=== PATIENT | female | born 1945 | race Caucasian/White ===

== ENCOUNTER 2025-07-11 07:15 | Inpatient (IN) | payer OTHER ==
[~2025-07-11] VITALS: Ht 157.5 cm; Wt 90.7 kg
[~2025-07-11 07:15] MED LIST: BACTRIM DS TABL1 TAB PO; DICY20TA PO; OXYC1TAB9 PO; PEPCID20 MG PO; POLY119PG PO; PROTONIX40 MG PO; TOPROL XL25 M1 PO
[2025-07-11] MEDS ORDERED: ATORVASTATIN CA10 MG PO (08:23)
[2025-07-11] MEDS ORDERED: COZAAR50 MG PO (08:23)
[2025-07-11] MEDS ORDERED: ELIQUIS5 MG PO (08:23)
[2025-07-11] MEDS ORDERED: PREVACID30 M1 PO (08:24)
[2025-07-11] MEDS ORDERED: JANUMET 50-1,01 EACH (08:24)
[2025-07-11] MEDS ORDERED: CARAFATE1 GM PO (08:25)
[2025-07-11] MEDS ORDERED: ACTOS45 MG PO (08:25)
[2025-07-11] MEDS ORDERED: TOPROL XL100 M1 PO (08:25)
[2025-07-11 08:30] VITALS: BP 152/78
[2025-07-11 08:58] LABS: BASO % 0.4 % (0.1-1.2); EOS # 0.14 (0.04-0.54); EOS % 2.0 % (0.7-7.0); LYMPH # 1.14 (1.18-3.74); LYMPH % 16.5 % (19.3-53.1); MEAN PLATELET VOLUME 9.70 fl (9.4-12.4); MONO # 0.76 (0.24-0.82); MONO % 11.0 % (4.7-12.5); NEUT # 4.77 (1.56-6.13); NEUT % 69.4 % (34.0-71.1); RED CELL DISTRIBUTION WIDTH 15.7 % (11.6-14.4)
[2025-07-11 09:03] LABS: URINE APPEARANCE Clear; URINE BILIRRUBIN Negative (NEGATIVE); URINE BLOOD Negative; URINE COLOR Yellow; URINE GLUCOSE Negative (NEGATIVE); URINE KETONE Negative (NEGATIVE); URINE LEUKOCYTE Small; URINE NITRATE Negative; URINE PROTEIN Negative (NEGATIVE); URINE UROBILINOGEN 1.0 E.U./dl
[2025-07-11 09:05] LABS: URINE BACTERIA 76.7 uL (0.0-1933); URINE EPITHELIAL CELLS 16.1 uL (0.0-38.8); URINE RBC 3.6 uL (0.0-20.8); URINE WBC 43.7 uL (0.0-23.2)
[2025-07-11 09:09] LABS: URINE CAST 0.14 uL (0.0-1.40)
[2025-07-11 09:15] LABS: COVID-19 AG NEGATIVE (NEGATIVE)
[2025-07-11 09:34] LABS: ALT/SGPT 19.0 U/L (12-78); AST/SGOT 12.0 U/L (15-37); BILIRUBIN TOTAL 1.45 mg/dL (0.3-1.2); BUN CREA RATIO 26.0 (7.0-25.0); CHOL HDL RATIO 2.2 (0-5.0); CREATININE SERUM 0.69 mg/dL (0.55-1.02); GFR 82.5; GLOBULINA 3.4 G/DL (2.4-3.5); GLUCOSE FASTING 128.0 mg/dL (65-100); HDL 58.0 mg/dl (40-60); LDL 53.0 mg/dl (0-130); OSMOLALITY SERUM 292.0 MOSM/KG (275-295); VLDL 19.0 (0-39)
[2025-07-11 09:48] LABS: INR 1.05
[2025-07-17 17:20] LABS: RH POSITIVE
[2025-07-18] MEDS ORDERED: LIDOCAINE HCL 1%/EPINEPHRINE 20ML VIAL IJ ONE (12:00)
[2025-07-18] MEDS ORDERED: BUPIVACAINE HCL/PF 0.25% 30ML VIAL InF ONE (12:00)
[2025-07-18] MEDS ORDERED: CEFAZOLIN SODIUM 1,000 MG VIAL IV ONE (12:00)
[2025-07-18] MEDS ORDERED: MORPHINE SULFATE 4 MG/ML VIAL IV ONE (12:00)
[2025-07-18] MEDS ORDERED: TRANEXAMIC ACID 100MG/1ML (1000MG) AMPUL IV ONE ×2 (12:00)
[2025-07-18] MEDS ORDERED: SODIUM CHLORIDE 0.45 % 1,000 ML IV SCH (16:45)
[2025-07-18] MEDS ORDERED: MORPHINE SULFATE 4 MG/ML CARTRIDGE IV PRN (16:45)
[2025-07-18] MEDS ORDERED: OxyCODONE HCL 5 MG TABLET (ROXICODONE) PO PRN (16:45)
[2025-07-18] MEDS ORDERED: ONDANSETRON HCL 2 MG/ML VIAL IV PRN (16:45)
[2025-07-18] MEDS ORDERED: GABAPENTIN 300 MG CAPSULE PO SCH (17:00)
[2025-07-18] MEDS ORDERED: CEFAZOLIN SODIUM 1,000 MG VIAL IV SCH (17:00)
[2025-07-18] MEDS ORDERED: ACETAMINOPHEN 500 MG GEL..CAP PO SCH (18:00)
[2025-07-18 19:35] VITALS: BP 120/64; O2SAT 96
[2025-07-18] MEDS ORDERED: DEXTROSE 50 % IN WATER 0.5 G/ML VIAL IV PRN (21:45)
[2025-07-18] MEDS ORDERED: ENALAPRILAT DIHYDRATE 1.25 MG/ML VIAL IV PRN (21:45)
[2025-07-18] MEDS ORDERED: INSULIN LISPRO 1,000 UNIT/10 ML UNITS SUBCUTANEO PRN (21:45)
[2025-07-18 22:47] VITALS: O2SAT 95
[2025-07-19] VITALS (8 sets, daily range): BP systolic 135–154; BP diastolic 71–80; O2SAT 90–100
[2025-07-19 07:20] LABS: BASO % 0.1 % (0.1-1.2); EOS # 0.04 (0.04-0.54); EOS % 0.5 % (0.7-7.0); LYMPH # 1.23 (1.18-3.74); LYMPH % 14.2 % (19.3-53.1); MEAN PLATELET VOLUME 9.60 fl (9.4-12.4); MONO # 1.24 (0.24-0.82); NEUT # 6.12 (1.56-6.13); NEUT % 70.6 % (34.0-71.1); RED CELL DISTRIBUTION WIDTH 15.9 % (11.6-14.4)
[2025-07-19 08:04] LABS: MONO % 14.3 % (4.7-12.5)
[2025-07-19] MEDS ORDERED: SENNOSIDES 1 TAB TABLET PO SCH (09:00)
[2025-07-19] MEDS ORDERED: METOPROLOL SUCCINATE 100 MG TAB.SR.24H PO SCH (09:00)
[2025-07-19] MEDS ORDERED: APIXABAN 2.5 MG TABLET PO SCH (09:00)
[2025-07-19] MEDS ORDERED: ATORVASTATIN CALCIUM 20 MG TABLET PO SCH (09:00)
[2025-07-19] MEDS ORDERED: LOSARTAN POTASSIUM 50 MG TABLET PO SCH (09:00)
[2025-07-19] MEDS ORDERED: SOD FERRIC GLUC COMPLX/SUCROSE 62.5 MG/5 ML AMPUL IV SCH (17:00)
[2025-07-19] MEDS ORDERED: Cyanocobalamin/Mecobalamin 1 TAB.SL SL SCH (17:00)
[2025-07-20 02:02] VITALS: BP 118/64; O2SAT 100
[2025-07-20 07:00] LABS: BASO % 0.3 % (0.1-1.2); EOS # 0.15 (0.04-0.54); EOS % 1.4 % (0.7-7.0); LYMPH # 0.94 (1.18-3.74); LYMPH % 8.6 % (19.3-53.1); MEAN PLATELET VOLUME 9.70 fl (9.4-12.4); MONO # 1.48 (0.24-0.82); NEUT # 8.22 (1.56-6.13); NEUT % 75.6 % (34.0-71.1); RED CELL DISTRIBUTION WIDTH 16.1 % (11.6-14.4)
[2025-07-20 07:12] LABS: MONO % 13.6 % (4.7-12.5)
[2025-07-20 08:00] VITALS: BP 122/71; O2SAT 100
[2025-07-20] MEDS ORDERED: IRON FUM,PS/FOLIC ACID/VITC/B3 1 CAP CAPSULE PO SCH (09:00)
[2025-07-20 10:04] LABS: COVID-19 AG NEGATIVE (NEGATIVE)
[2025-07-20 13:45] VITALS: O2SAT 98
[2025-07-20] MEDS ORDERED: PERCOCET 5-3251 EACH PO (15:24)
[2025-07-20] MEDS ORDERED: CEFADROXIL500 MG PO (15:24)
[2025-07-20] MEDS ORDERED: ELIQUIS2.5 MG PO (15:24)
[2025-07-20 16:00] VITALS: BP 96/60; O2SAT 95
[2025-07-20 16:19] VITALS: O2SAT 93
== END 2025-07-20 21:48 | DRG 470 ==
LOC: SURH 07-18 07:15 → O/R 07-18 10:30 → SURH 07-18 10:30
PROVIDERS: ADMIT Orthopaedic Surgery; ATTEND Orthopaedic Surgery
PROC: 0MNP0ZZ Release Left Knee Bursa and Ligament, Open Approach (ICD-10-PCS; 2025-07-18)
PROC: 0QUF0KZ Supplement Left Patella with Nonautologous Tissue Substitute, Open Approach (ICD-10-PCS; 2025-07-18)
PROC: 0QUF0JZ Supplement Left Patella with Synthetic Substitute, Open Approach (ICD-10-PCS; 2025-07-18)
PROC: 4A12X4Z Monitoring of Cardiac Electrical Activity, External Approach (ICD-10-PCS; 2025-07-18)
PROC: 0SRD0JZ Replacement of Left Knee Joint with Synthetic Substitute, Open Approach (ICD-10-PCS; principal; 2025-07-18 17:15)
DX: M17.12 Unilateral primary osteoarthritis, left knee (principal); D62 Acute posthemorrhagic anemia; I48.0 Paroxysmal atrial fibrillation; E11.9 Type 2 diabetes mellitus without complications; I10 Essential (primary) hypertension; Z96.652 Presence of left artificial knee joint; M22.12 Recurrent subluxation of patella, left knee; E66.9 Obesity, unspecified; M81.0 Age-related osteoporosis without current pathological fracture